=== PATIENT | female | born 1955 | race American Indian/Alaskan Native ===

== ENCOUNTER 2020-11-18 23:30 | Emergency (ER) | payer MEDICARE ==
[2020-11-19] MEDS ORDERED: IBUPROFEN 600 MG TAB PO ONE (00:19)
[2020-11-19] MEDS ORDERED: ACETAMINOPHEN 325 MG TAB PO ONE (00:19)
--- NOTE | 2020-11-19 00:37 | XRay Report ---
XR foot 3+V RT, XR ankle 3+V RT INDICATION: right foot pain COMPARISON: None. FINDINGS/IMPRESSION: Mildly displaced oblique fracture involving the lateral malleolus at the level of the tibiotalar join t consistent with a Celestin B fracture. Medial malleolus is intact. Normal alignment of the joints. No foot fracture. Signer Name: Ajit Thomas MD Signed: 11/19/2020 12:33 AM Workstation Name: [id number]
[2020-11-19] MEDS ORDERED: ONDANSETRON 4 MG ODT TAB PO ONE ×2 (00:39→02:04)
[2020-11-19] MEDS ORDERED: oxyCODONE /ACETAMINOPHEN 5-325MG TAB PO ONE ×2 (00:39→02:04)
--- NOTE | 2020-11-19 00:45 | Emergency Department Report ---
ED Fall HPI - General Chief Complaint: Extremity Injury, Lower Stated Complaint: RIGHT SIDE PAIN Time Seen by Provider: 11/19/20 00:08 Source: patient Mode of arrival: Ambulatory - History of Present Illness Initial Comments: Patient is a 65-year-old -[place] female with a history of hypertension who presents to the ED with complaint of acute onset persistent severe right ankle pain and swelling for the last 1 hour after she tripped when coming out of an SUV car and twisted right ankle and fell down and landed on her right side and in the process hitting her head against concrete. Patient states that she is unable to bear weight on the right ankle and foot because of severe pain and swelling. Patient denies loss of consciousness, dizziness, syncope, chest pain, shortness of breath, back pain, abdominal pain, hemoptysis, change in vision, seizures, numbness and tingling or weakness of lower and upper extremities bilaterally. MD Complaint: fall, other (right ankle and foot pain) -: Sudden, hour(s) (1) Fall From: standing, other (tripped and fell down when disembarking from a vehic le ) When Fall Occurred: 1 hour ON CALL Fall Witnessed: yes, by family Place Fall Occurred: street Loss of Consciousness: none Prolonged Down Time?: no Symptoms Prior to Fall: none Location: other (right foot and ankle pain) Location - Extremities: Right: Ankle (pain, swelling), Foot (pain, swelling) Severity: severe Severity scale (0 -10): 9 Quality: sharp, aching Context: tripped/slipped Associated Symptoms: denies, headache, neck pain. denies: numbness, weakness, chest paint, shortness of breath, abdominal pain, unable to walk, lightheaded, vertigo, confusion - Related Data Previous Rx's Medication Instructions Recorded Last Taken Type HYDROcodone/APAP 5-325 [Bisbee 1 each PO Q6HR PRN #12 tablet 11/19/20 Unknown Rx 5/325] Ibuprofen [Motrin] 600 mg PO Q8H PRN #30 tablet 11/19/20 Unknown Rx Allergies Allergy/AdvReac Type Severity Reaction Status Date / Time No Known Allergies Allergy Unverified 11/18/20 23:59 ED Review of Systems ROS: Stated complaint: RIGHT SIDE PAIN Other details as noted in HPI Constitutional: denies: chills, fever Eyes: denies: eye pain, eye discharge, vision change ENT: denies: ear pain, throat pain Respiratory: denies: cough, shortness of breath, wheezing Cardiovascular: denies: chest pain, palpitations Endocrine: no symptoms reported Gastrointestinal: denies: abdominal pain, nausea, diarrhea Genitourinary: denies: urgency, dysuria, discharge Musculoskeletal: joint swelling (right ankle and foot), arthralgia (right ankle and foot), other (neck pain). denies: back pain Skin: denies: rash, lesions Neurological: headache. denies: weakness, paresthesias Psychiatric: denies: anxiety, depression Hematological/Lymphatic: denies: easy bleeding, easy bruising ED Past Medical Hx - Past Medical History Previous Medical History?: Yes Additional medical history: ITP - Surgical History Past Surgical History?: Yes Hx Cholecystectomy: Yes Additional Surgical History: Right ankle. Spleenectomy. Hysterectomy - Social History Smoking Status: Never Smoker Substance Use Type: None - Medications Home Medications: Home Medications Medication Instructions Recorded Confirmed Last Taken Type HYDROcodone/APAP 5-325 [Bisbee 1 each PO Q6HR PRN #12 tablet 11/19/20 Unknown Rx 5/325] Ibuprofen [Motrin] 600 mg PO Q8H PRN #30 tablet 11/19/20 Unknown Rx ED Physical Exam - General Limitations: No Limitations General appearance: alert, in no apparent distress - Head Head exam: Present: atraumatic, normocephalic, normal inspection - Eye Eye exam: Present: normal appearance, PERRL, EOMI Pupils: Present: normal accommodation - ENT ENT exam: Present: mucous membranes moist. Absent: normal orophraynx, TM's normal bilaterally, normal external ear exam - Neck Neck exam: Present: normal inspection, tenderness (Palpable mild cervical paraspinal musculoskeletal tenderness), full ROM - Respiratory Respiratory exam: Present: normal lung sounds bilaterally. Absent: respiratory distress, wheezes, rales, chest wall tenderness, accessory muscle use, decreased breath sounds, prolonged expiratory - Cardiovascular Cardiovascular Exam: Present: regular rate, normal rhythm, normal heart sounds. Absent: systolic murmur, diastolic murmur, rubs, gallop - GI/Abdominal GI/Abdominal exam: Present: soft, normal bowel sounds. Absent: tenderness, guarding, hyperactive bowel sounds, hypoactive bowel sounds - Extremities Exam Extremities exam: Present: normal inspection, full ROM, tenderness (Palpable severe right ankle and foot tenderness with limited range of motion due to pain.), normal capillary refill, joint swelling (Right ankle and foot swelling with severe tenderness and limited range of motion) - Back Exam Back exam: Present: normal inspection, full ROM. Absent: tenderness, CVA tenderness (R), CVA tenderness (L), muscle spasm, paraspinal tenderness, vertebral tenderness - Neurological Exam Neurological exam: Present: alert, oriented X3, CN II-XII intact, normal gait, reflexes normal - Psychiatric Psychiatric exam: Present: normal affect, normal mood - Skin Skin exam: Present: warm, dry, intact, normal color. Absent: rash ED Course Vital Signs 11/18/20 23:51 Temperature 97.9 F Pulse Rate 78 Respiratory 18 Rate Blood Pressure 140/56 O2 Sat by Pulse 99 Oximetry ED Medical Decision Making - Radiology Data Radiology results: report reviewed, image reviewed [facility], [place] [address] [place] [address] Cat Scan Report Signed Patient: YOLANDA GARCIA MR#: [id number] : 1955 Acct:[id number] Age/Sex: 65 / F ADM Date: 11/18/20 Loc: ED Attending Dr: Ordering Physician: PAUL MOSLEY Date of Service: 11/19/20 Procedure(s): CT head/brain wo con Accession Number(s): [id number] cc: PAUL MOSLEY CT cervical spine wo con, CT head/brain wo con INDICATION: Tripped and fell - head and neck pain. TECHNIQUE: CT head and cervical spine without contrast. All CT scans at this location are performed using CT dose reduction for ALARA by means of automated exposure control. COMPARISON: None. FINDINGS: HEAD: Intracranial: Patterson-white matter differentiation is maintained. No intracranial hemorrhage. No extra axial collection.. No hydrocephalus. No herniation. Sinuses: Paranasal sinuses and mastoid air cells are essentially clear. Orbits: Globes are intact Calvarium: No acute fracture. CERVICAL: Alignment: Normal alignment. Vertebrae: No fracture. Vertebral body heights are preserved. C1 and C2 are congruent. Atlantooccipital joint is maintained. Spondylolysis: No significant spondylosis. Soft tissues: No prevertebral soft tissue thickening. Additional findings: No significant additional findings. IMPRESSION: 1. No acute intracranial abnormality. 2.No cervical spine fracture. Signer Name: Ajit Thomas MD Signed: 11/19/2020 1:15 AM Workstation Name: [id number] Transcribed By: KILEY Dictated By: Ajit Thomas MD Electronically Authenticated By: Ajit Thomas MD Signed Date/Time: 11/19/20114 DD/ 3 TD/TT: [facility], [place] [address] [place] [address] XRay Report Signed Patient: YOLANDA GARCIA MR#: [id number] : 1955 Acct:[id number] Age/Sex: 65 / F ADM Date: 11/18/20 Loc: ED Attending Dr: Ordering Physician: CHARLA HAWKINS MD Date of Service: 11/18/20 Procedure(s): XR ankle 3+V RT Accession Number(s): [id number] cc: CHARLA HAWKINS MD Fluoro Time In Minutes: XR foot 3+V RT, XR ankle 3+V RT INDICATION: right foot pain COMPARISON: None. FINDINGS/IMPRESSION: Mildly displaced oblique fracture involving the lateral malleolus at the level of the tibiotalar joint consistent with a Celestin B fracture. Medial malleolus is intact. Normal alignment of the joints. No foot fracture. Signer Name: Ajit Thomas MD Signed: 11/19/2020 12:33 AM Workstation Name: [id number] Transcribed By: KILEY Dictated By: Ajit Thomas MD Electronically Authenticated By: Ajit Thomas MD Signed Date/Time: 11/19/2032 DD/ TD/TT: Print Cancel Print - Medical Decision Making This is a 65-year-old -[place] female with a history of hypertension who presents to the ED with complaint of acute onset persistent severe right ankle pain and swelling for the last 1 hour after she tripped when coming out of an SUV car and twisted right ankle and fell down and landed on her right side and in the process hitting her head against concrete. Patient states that she is unable to bear weight on the right ankle and foot because of severe pain and swelling. In the ED, patient is alert and oriented x3 and is not in distress but appears to be in pain. Patient was treated for pain in the ED. The head CT scan without contrast showed no acute intracranial abnormalities or hemorrhage. The C-spine CT scan without contrast showed no acute cervical spine fractures or subluxations. The right ankle and foot x-rays showed a mildly displaced oblique fracture involving the lateral malleolus at the level of the tibiotalar joint consistent with a Celestin B fracture. Medial malleolus is intact. Normal alignment of the joints. No foot fracture. The patient's right ankle and foot was splinted with a posterior splint, and on reevaluation, patient right ankle and foot are neurovascularly intact. Patient was discharged home on pain medications and advised to observe nonweightbearing on the right leg and to ambulate with crutches. Patient was given a referral to a local orthopedic surgeon Dr. Coleman for follow-up however patient stated that she was visiting [facility] from [facility] and will be traveling the next day to follow-up with her own orthopedic surgeon in [facility] first thing on Saturday, November 21, 2020. Patient was however advised return to the ED immediately if symptoms get worse. - Differential Diagnosis Ankle fracture; foot fracture; leg contusion; ankle sprain; muscle strain Critical care attestation.: If time is entered above; I have spent that time in minutes in the direct care of this critically ill patient, excluding procedure time. ED Disposition Clinical Impression: Closed fracture of distal end of left fibula Qualifiers: Encounter type: initial encounter Fracture morphology: unspecified fracture morphology Qualified Code(s): S82.832A - Other fracture of upper and lower end of left fibula, initial encounter for closed fracture Sprain of right foot Qualifiers: Encounter type: initial encounter Qualified Code(s): S93.601A - Unspecified sprain of right foot, initial encounter Disposition: TO HOME OR SELFCARE Is pt being admited?: No Does the pt Need Aspirin: No Condition: Stable Instructions: Nondisplaced Fibular Ankle Fracture Treated With Immobilization, Adult, Fibular Fracture Rehab-SportsMed, Cast or Splint Care, Adult, [id number], Tibial and Fibular Fractures, Cast or Splint Care, Adult Additional Instructions: The x-ray of your right ankle shows slightly displaced fracture of distal right fibula, otherwise the joint is intact. Right foot x-ray shows no acute fractures or subluxations. Ensure that you do not bear weight on the right ankle due to the fracture. Therefore take medications for pain as needed with food, drink plenty of fluids and follow-up with the orthopedic surgeon Dr. Coleman for further evaluation. Contact the Jared's office first thing in the morning on Saturday, November 21, 2020 to schedule a follow-up appointment. Return to the ED immediately if symptoms get worse. Prescriptions: Ibuprofen [Motrin] 600 mg PO Q8H PRN #30 tablet PRN Reason: Pain HYDROcodone/APAP 5-325 [Bisbee 5/325] 1 each PO Q6HR PRN #12 tablet PRN Reason: Pain Referrals: RUSSEL COLEMAN MD [Staff Physician] - 3-5 Days Time of Disposition: 00:53 Print Language: TAMAZIGHT
--- NOTE | 2020-11-19 01:19 | Cat Scan Report ---
CT cervical spine wo con, CT head/brain wo con INDICATION: Tripped and fell - head and neck pain. TECHNIQUE: CT head and cervical spine without contrast. All CT scans at this location are performed u sing CT dose reduction for ALARA by means of automated exposure control. COMPARISON: None. FINDINGS: HEAD: Intracranial: Patterson-white matter differentiation is maintained. No intracranial hemorrhage. No extra a xial collection.. No hydrocephalus. No herniation. Sinuses: Paranasal sinuses and mastoid air cells are essentially clear. Orbits: Globes are intact Calvarium: No acute fracture. CERVICAL: Alignment: Normal alignment. Vertebrae: No fracture. Vertebral body heights are preserved. C1 and C2 are congruent. Atlantooccipi dionna joint is maintained. Spondylolysis: No significant spondylosis. Soft tissues: No prevertebral soft tissue thickening. Additional findings: No significant additional findings. IMPRESSION: 1. No acute intracranial abnormality. 2.No cervical spine fracture. Signer Name: Ajit Thomas MD Signed: 11/19/2020 1:15 AM Workstation Name: [id number]
[2020-11-19 02:01] VITALS: BP 148/73
== END 2020-11-19 02:13 | disposition home or self-care (01) ==
LOC: ED 23:30
DX: S82.832A Other fracture of upper and lower end of left fibula, initial encounter for closed fracture (principal); S93.601A Unspecified sprain of right foot, initial encounter; R51.9 Headache, unspecified; Z90.49 Acquired absence of other specified parts of digestive tract; Z90.710 Acquired absence of both cervix and uterus; Z90.89 Acquired absence of other organs; Z79.1 Long term (current) use of non-steroidal anti-inflammatories (NSAID); Z79.899 Other long term (current) drug therapy; W01.0XXA Fall on same level from slipping, tripping and stumbling without subsequent striking against object, initial encounter; Y93.89 Activity, other specified; Y92.89 Other specified places as the place of occurrence of the external cause; Y99.8 Other external cause status
CPT/HCPCS: 70450; 72125; Q0162